=== PATIENT | female | born 2000 | race American Indian/Alaskan Native ===

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

== ENCOUNTER 2020-02-06 10:50 | Emergency (ER) | payer MEDICAID ==
[2020-02-06 11:00] VITALS: BP 110/41
--- NOTE | 2020-02-06 11:22 | Emergency Department Report ---
Chief Complaint: Dental/Oral Stated Complaint: TOOTH PAIN Time Seen by Provider: 02/06/20 11:20 - HPI History of Present Illness: Patient is a 20-year-old female presents emergency room with complaints of left lower dental pain that began 2 to 3 days ago. She states it has been multiple years since she has seen a dentist. She denies any fever, vomiting, difficulty swallowing, facial swelling, shortness of breath. She states that she has been taking ibuprofen with mild relief. No past medical history. No allergies to medications. She states her last menstrual cycle was the end of December. Vitals are normal On exam: Non toxic appearing, no acute distress atraumatic, normocephalic normal appearance of the eyes, EOMI, no periorbital edema or ecchymosis moist mucus membranes, normal posterior oropharynx, left lower back molar with small hole present which is consistent with a dental carry, no edema or induration of the jawline, no facial swelling, uvula is midline, no uvular edema or deviation, no submandibular swelling, no muffled voice, no tongue elevation regular heart rate and rhythm, no gallops, no rubs, no murmurs breath sounds are clear bilaterally, no w/r/r, no stridor, no respiratory distress, no accessory muscle use A&O x4 skin is warm, dry, intact Examination appears consistent with cracked tooth and dental carry No clinical signs of infected dental carry, dental abscess, Ludwigs, or peritonsillar abscess at this time Patient given multiple dental clinic resources Discussed supportive care and symptomatic treatment with patient discussed the importance of dental follow-up with patient Discussed strict return precautions with patient Medical screen examination performed and there is no threat to life or limb at this time - Exam Vital Signs: Vital Signs 02/06/20 10:57 Temperature 98 F Pulse Rate 71 Respiratory 16 Rate Blood Pressure 110/41 O2 Sat by Pulse 100 Oximetry MSE screening note: Focused history and physical exam performed. Due to findings the following was ordered: ED Disposition for MSE Clinical Impression: Cracked tooth, Dental caries, Dentalgia Disposition: MED SCREENING EXAM-LEFT Is pt being admited?: No Does the pt Need Aspirin: No Condition: Stable Instructions: Dental Caries (ED), Toothache (ED) Additional Instructions: May alternate 600 mg of ibuprofen and then 650 mg of Tylenol every 6-8 hours as needed for pain. May gargle with warm salt water. May use a dental putty [id number] to fill the hole. Follow-up with a dentist in the next 2 to 3 days. It is very important that you follow-up with a dentist. Return to emergency room for any new or worsening symptoms. Referrals: [facility] [Outside] - 2-3 Days [facility] [Outside] - 2-3 Days Time of Disposition: 11:21 Print Language: UPPER SORBIAN
== END 2020-02-06 11:30 | disposition left against medical advice (07) ==
LOC: ED 10:50
DX: K08.89 Other specified disorders of teeth and supporting structures (principal); Z53.21 Procedure and treatment not carried out due to patient leaving prior to being seen by health care provider

== ENCOUNTER 2021-11-23 21:46 | Outpatient (CLI) | payer MEDICAID ==
[2021-11-23 22:16] VITALS: BP 110/55
--- NOTE | 2021-11-23 23:33 | Ultrasound Report ---
US OB follow up INDICATION / CLINICAL INFORMATION: EFW, DANIEL, CERVICAL LENGTH COMPARISON: No comparison ultrasounds are available from current gestation. TECHNIQUE: Using a transcutaneous probe, multiple grayscale, color Doppler, and spectral Doppler imag es of the uterus and fetus were captured and stored. FINDINGS: Single breech fetus with heart rate of 140 bpm is demonstrated. The amniotic fluid is normal in amount with DANIEL of 16.4 cm. Anterior grade 1 placenta is demonstrated. The cervix is measured at 3.8 cm. Cervix is closed. Biparietal Diameter = 5.7 cm = 23, 4 weeks, days Head Circumference = 21.7 cm = 23, 5 weeks, days Abdominal Circumference = 19.4 cm = 24, 0 weeks, days Femur Length = 4.6 cm = 25, 1 weeks, days Average Ultrasound Age (AUA) = 24, 1 weeks, days. EDC is 03/14/2022. Estimated weight = 692 g. Growth percentile not recorded. Maternal adnexa not identified secondary to stage of gestation. The urinary bladder is not well visua lized.. IMPRESSION: 1. Single living fetus with estimated gestational age of 24 weeks 1 day, EDC 03/14/2022. Signer Name: Bg Cruz II, MD Signed: 11/23/2021 11:29 PM Workstation Name: [id number]
== END 2021-11-24 00:20 | disposition home or self-care (01) ==
LOC: TRG 21:46 → APU 21:48 → TRG 11-24 00:20
PROVIDERS: ATTEND Obstetrics & Gynecology Gynecology
DX: O26.899 Other specified pregnancy related conditions, unspecified trimester (principal); R10.30 Lower abdominal pain, unspecified; M54.50 Low back pain, unspecified; Z3A.00 Weeks of gestation of pregnancy not specified
CPT/HCPCS: 76816